=== PATIENT | male | born 1985 | race Caucasian/White ===

== ENCOUNTER 2024-09-15 00:16 | Inpatient (IN) | payer OTHER ==
[2024-09-15 00:35] VITALS: TEMP 98.4; BMI 28.8
[2024-09-15] MEDS ORDERED: ACETAMINOPHEN INJECTION 100 ML ONE ×2 (01:09→15:14)
[2024-09-15] MEDS: ACETAMINOPHEN 1000 MG/100 ML BAG IVPB ONE ×2 (01:35→15:19)
[2024-09-15 01:36] LABS: BASO % 0.5 % (0-2.0); EOS % 0.8 % (0-4.5); HEMATOCRIT 44.1 % (35.4-49); HEMOGLOBIN 14.7 GM/dL (11.7-16.9); LYMPH % 6.3 % (8-40); MCH 28.1 pg (25.7-33.7); MCHC 33.3 g/dl (32.0-35.9); MEAN CELL VOLUME 84.3 fl (80-96); MEAN PLT VOLUME 8.8 fl (7.5-11.1); MONO % 9.3 % (3.8-10.2); NEUT % 83.1 % (42.8-82.8); PLATELET COUNT 202 10^3/uL (134-434); RBC 5.22 M/mm3 (4.00-5.60); RDW 13.6 % (11.9-15.9)
[2024-09-15 01:44] LABS: INR 1.1 (0.83-1.09); PROTHROMBIN TIME (PATIENT) 12.6 SEC (9.7-13.0)
[2024-09-15 01:47] LABS: ACTIVATED PTT 29.2 SECONDS (25.2-36.5)
[2024-09-15 01:54] LABS: POTASSIUM 3.7 mmol/L (3.5-5.1)
[2024-09-15 01:56] LABS: ALBUMIN 3.6 g/dl (3.4-5.0); BLOOD UREA NITROGEN 17.2 mg/dL (7-18); CALCIUM 9.6 mg/dL (8.5-10.1)
[2024-09-15 02:00] LABS: CREATININE 1.1 mg/dL (0.55-1.3)
[2024-09-15 02:01] LABS: TOT PROT 7.5 g/dl (6.4-8.2)
[2024-09-15 02:07] LABS: BILIRUBIN,TOTAL 1.8 mg/dL (0.2-1)
[2024-09-15 02:13] LABS: PH,URINE 6.5 (5.0-8.0); URINE APPEARANCE CLEAR; URINE BILIRUBIN NEGATIVE (NEGATIVE); URINE COLOR DK YELLOW; URINE GLUCOSE (UA) NEGATIVE (NEGATIVE); URINE KETONE TRACE (NEGATIVE); URINE LEUK ESTERASE NEGATIVE (NEGATIVE); URINE NITRITE NEGATIVE (NEGATIVE); URINE PROTEIN NEGATIVE (NEGATIVE); URINE UROBILINOGEN 4.0 E.U/dl mg/dL (0.2-1.0)
[2024-09-15] MEDS ORDERED: ENOXAPARIN NA (PORCINE) 80 MG/0.8 ML DISP.SYRIN SQ ONE (04:07)
[2024-09-15] MEDS: ENOXAPARIN NA (PORCINE) 80 MG/0.8 ML DISP.SYRIN SQ ONE (04:14)
[2024-09-15] MEDS: LACTATED RINGERS SOLUTION 1000 ML INFUS.BAG IV ONE (04:14)
[2024-09-15 08:01] VITALS: RESP 19
[2024-09-15] MEDS ORDERED: LORazepam 2 MG/ML SDV VIAL IVPUSH PRN (10:57)
[2024-09-15 15:18] LABS: URINE BARBITURATES NEGATIVE (NEGATIVE)
[2024-09-15 15:19] LABS: METHADONE, UR NEGATIVE (NEGATIVE); OPIATES, URI NEGATIVE (NEGATIVE)
[2024-09-15 15:20] LABS: PHENCYCLIDINE,URINE NEGATIVE (NEGATIVE)
[2024-09-15 15:32] LABS: COCAINE, UR NEGATIVE (NEGATIVE); URINE AMPHETAMINES NEGATIVE (NEGATIVE); URINE BENZODIAZEPINES POSITIVE (NEGATIVE)
[2024-09-15 16:19] VITALS: BP 118/73; PULSE 83
[2024-09-15] MEDS ORDERED: ENOXAPARIN NA (PORCINE) 80 MG/0.8 ML DISP.SYRIN SQ SCH (18:00)
== END 2024-09-15 16:45 | disposition left against medical advice (07) | DRG 134 ==
LOC: JER 00:16 → JERBED 03:57
PROVIDERS: ADMIT Internal Medicine; ATTEND Internal Medicine
DX: I26.99 Other pulmonary embolism without acute cor pulmonale (principal); I10 Essential (primary) hypertension; G40.909 Epilepsy, unspecified, not intractable, without status epilepticus
CPT/HCPCS: 0241U-QW; 36415; 71045-TC-FY; 71275-TC; 80053; 80177; 80307; 81003; 82550; 82553; 84484; 85025; 85610; 85730; 86850; 86900; 86901; 87086; 93005; 93010; 93970-TC; 99285-25; J0131